=== PATIENT | male | born 1990 | race Caucasian/White ===

== ENCOUNTER 2018-12-18 15:11 | Emergency (ER) ==
--- NOTE | 2018-12-18 15:39 | ED.PDOC ---
History of Present Illness - General Chief Complaint: Respiratory Problem Stated Complaint: Pt complains of chest congestion Time Seen by Provider: 12/18/18 15:33 Source: patient Exam Limitations: no limitations - History of Present Illness Timing/Duration: 7-24 hours Severity: mild Activities at Onset: activity Possible Cause: allergen exposure Improving Factors: nothing Worsening Factors: nothing Associated Symptoms: cough, wheezing Respiratory Risk Factors: exposure to allergen, pollen Allergies/Adverse Reactions: Allergies NO KNOWN ALLERGY Allergy (Verified 12/18/18 15:26) Home Medications: Ambulatory Orders Albuterol Inhaler [Ventolin Hfa Inhaler] 2 puff INH Q12HRS PRN #1 inh 12/18/18 Review of Systems - Review of Systems Constitutional: Denies: chills, fever EENTM: States: nose congestion. Denies: throat pain Respiratory: States: cough, short of breath, wheezing Cardiology: Denies: chest pain, palpitations Gastrointestinal/Abdominal: States: no symptoms reported Genitourinary: States: no symptoms reported Musculoskeletal: States: no symptoms reported Skin: States: no symptoms reported Neurological: States: no symptoms reported Endocrine: States: no symptoms reported Hematologic/Lymphatic: States: no symptoms reported Past Medical History (General) - Patient Medical History Hx Stroke: No Hx of COPD: No Hx Congestive Heart Failure: No Hx Hypertension: No Hx Diabetes: No Surgical History: no surgical history - Vaccination History Hx Tetanus, Diphtheria Vaccination: Yes Hx Influenza Vaccination: No Hx Pneumococcal Vaccination: No Immunizations Up to Date: No - Social History Hx Tobacco Use: Yes Hx Alcohol Use: Yes - Occasional Hx Substance Use: Yes Hx Substance Use Treatment: No Hx Depression: No - Female History Patient is a Female of Child Bearing Age (10 -59 yrs old): No Patient : No Family Medical History - Family History Mother Family History: Unknown Living Status: Unknown Physical Exam - Physical Exam General Appearance: Alert, Comfortable Eyes, Ears, Nose, Throat Exam: PERRL/EOMI, pharynx normal Neck: normal inspection Respiratory: no respiratory distress, wheezing Cardiovascular/Chest: normal peripheral pulses, regular rate, rhythm Skin Exam: normal color, warm/dry Lymphatic: no adenopathy Departure - Departure Clinical Impression: Bronchitis Disposition: Discharge to Home or Self Care Departure Forms: ED Discharge - Pt. Copy, Patient Portal Self Enrollment Prescriptions: Albuterol Inhaler [Ventolin Hfa Inhaler] 2 puff INH Q12HRS PRN #1 inh PRN Reason: Shortness Of Breath/Wheezing Home Medications: Ambulatory Orders Albuterol Inhaler [Ventolin Hfa Inhaler] 2 puff INH Q12HRS PRN #1 inh 12/18/18
[2018-12-18 15:50] VITALS: BP 117/77; TEMP 98.4; O2SAT 97
== END 2018-12-18 15:49 | disposition home or self-care (01) ==
LOC: ER 15:11
DX: J40 Bronchitis, not specified as acute or chronic (principal); Z87.891 Personal history of nicotine dependence

== ENCOUNTER 2019-01-23 08:43 | Emergency (ER) | payer BC ==
[2019-01-23 08:58] VITALS: BP 127/77; TEMP 97.4; O2SAT 99
[2019-01-23] MEDS ORDERED: KETOROLAC TROMETHAMINE INJ 30 MG/ML VIAL IM ONE (09:01)
--- NOTE | 2019-01-23 09:04 | ED.PDOC ---
History of Present Illness - General Chief Complaint: Neck Injury/Pain Stated Complaint: neck pain Time Seen by Provider: 01/23/19 09:00 Source: patient Exam Limitations: no limitations - History of Present Illness Initial Comments: the patient is a 28-year-old male presenting to the emergency room secondary to diffuse posterior neck pain after having gone to a [facility] last night and head banding for a few hours. No focal tenderness. He does have diffuse muscle spasm. No bruising. No evidence of overt trauma. This appears to be myofascial strain. no neurological changes. No other injuries. Timing/Duration: 4-6 hours Severity: moderate Improving Factors: immobilization Worsening Factors: movement Associated Symptoms: denies symptoms Allergies/Adverse Reactions: Allergies NO KNOWN ALLERGY Allergy (Verified 12/18/18 15:26) Home Medications: Ambulatory Orders Albuterol Inhaler [Ventolin Hfa Inhaler] 2 puff INH Q12HRS PRN #1 inh 12/18/18 Cyclobenzaprine HCl [Flexeril] 5 mg PO TID PRN #30 tab 01/23/19 predniSONE [Prednisone] 20 mg PO DAILY #3 tab 01/23/19 Review of Systems - Review of Systems Constitutional: States: no symptoms reported EENTM: States: no symptoms reported Respiratory: States: no symptoms reported Cardiology: States: no symptoms reported Gastrointestinal/Abdominal: States: no symptoms reported Genitourinary: States: no symptoms reported Musculoskeletal: States: see HPI Skin: States: no symptoms reported Neurological: States: no symptoms reported Endocrine: States: no symptoms reported All other Systems: No Change from Baseline Past Medical History (General) - Patient Medical History Hx Stroke: No Hx of COPD: No Hx Congestive Heart Failure: No Hx Hypertension: No Hx Diabetes: No Surgical History: no surgical history - Vaccination History Hx Tetanus, Diphtheria Vaccination: Yes Hx Influenza Vaccination: No Hx Pneumococcal Vaccination: No - Social History Hx Tobacco Use: Yes Hx Alcohol Use: Yes - Occasional Hx Substance Use: Yes Hx Substance Use Treatment: No Hx Depression: No - Female History Patient : No Family Medical History - Family History Mother Family History: Unknown Living Status: Unknown Physical Exam - Physical Exam General Appearance: Alert, Comfortable, No apparent distress Eye Exam: bilateral normal Ears, Nose, Throat: normal ENT inspection, normal pharynx Neck: other - see history of present illness Respiratory: no respiratory distress, no accessory muscle use Cardiovascular/Chest: normal peripheral pulses, no edema Peripheral Pulses: radial,right: 2+, radial,left: 2+, dorsalis pedis,right: 2+, dorsalis pedis,left: 2+ Rectal Exam: deferred Back Exam: no CVA tenderness, no vertebral tenderness Extremity: non-tender, normal inspection, no pedal edema, normal capillary refill 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 He can use topical heat or icy hot or Biofreeze. He does need to do neck stretching exercises. [id number] anti-inflammatories such as Motrin or Aleve can be used. He'll be written for 3 days of oral prednisone and some muscle relaxers for as needed use. He needs to keep himself well hydrated. Keep routine follow up with primary care doctor. ER warnings were given. Departure - Departure Clinical Impression: Myofascial pain syndrome, cervical Disposition: Discharge to Home or Self Care Condition: Fair Departure Forms: ED Discharge - Pt. Copy, Patient Portal Self Enrollment Instructions: DI for Cervical Muscle Strain Diet: regular diet Activity: increase activity as tolerated Referrals: KATH PATEL [Primary Care Provider] - 1-2 Weeks Prescriptions: Cyclobenzaprine HCl [Flexeril] 5 mg PO TID PRN #30 tab PRN Reason: Muscle Spasms predniSONE [Prednisone] 20 mg PO DAILY #3 tab Home Medications: Ambulatory Orders Albuterol Inhaler [Ventolin Hfa Inhaler] 2 puff INH Q12HRS PRN #1 inh 12/18/18 Cyclobenzaprine HCl [Flexeril] 5 mg PO TID PRN #30 tab 01/23/19 predniSONE [Prednisone] 20 mg PO DAILY #3 tab 01/23/19 Additional Instructions: the patient's 28-year-old male presenting to the emergency room secondary to what appears to be myofascial strain of the paracervical spinal muscles. He can use topical heat or icy hot or Biofreeze. He does need to do neck stretching exercises. Hsvu-[id number]-[id number] anti-inflammatories such as Motrin or Aleve can be used. He'll be written for 3 days of oral prednisone and some muscle relaxers for as needed use. He needs to keep himself well hydrated. Keep routine follow up with primary care doctor. ER warnings were given.
== END 2019-01-23 09:24 | disposition home or self-care (01) ==
LOC: ER 08:43
DX: M54.2 Cervicalgia (principal); Z87.891 Personal history of nicotine dependence

== ENCOUNTER 2019-09-25 10:05 | Emergency (ER) | payer SELFPAY ==
--- NOTE | 2019-09-25 11:59 | RAD ---
Study: Frontal and Lateral Radiographs of the Chest. Indication: cough Comparison: None. Impression: Heart size normal. Lungs clear. No acute osseous abnormality. Costophrenic angles not included in their entirety within the field of view. Electronically signed by: Nathaniel Lloyd MD 09/25/2019 11:58 AM [facility]
--- NOTE | 2019-09-25 15:25 | ED.PDOC ---
History of Present Illness - General Chief Complaint: Respiratory Problem Stated Complaint: trouble breathing Time Seen by Provider: 09/25/19 12:47 Source: patient - History of Present Illness Comments: 29-year-old male presents to the emergency department complaining of cough, congestion and chest tightness that has been intermittent for the last 3 days. He reports 3 days ago he started with upper respiratory symptoms and fever however since that time his fever has resolved and he is continuing to cough and feels like his chest is tight. He does have a history of asthma but is currently out of his albuterol. He denies any nausea, vomiting or diarrhea. Symptoms are currently moderate in severity and nothing he does seems to make them significantly better but they are worsened with cough and taking a deep breath. Allergies/Adverse Reactions: Allergies NO KNOWN ALLERGY Allergy (Verified 12/18/18 15:26) Home Medications: Ambulatory Orders Albuterol Inhaler [Ventolin Hfa Inhaler] 2 puff INH Q12HRS PRN #1 inh 12/18/18 Albuterol Inhaler [Ventolin Hfa Inhaler] 1 - 2 puff INH Q4H PRN #1 inh 09/25/19 Prednisone 50 mg PO DAILY #5 tab 09/25/19 Review of Systems - Review of Systems Constitutional: States: fever. Denies: chills, weakness EENTM: States: nose congestion, throat pain Respiratory: States: cough. Denies: wheezing Cardiology: Denies: edema, palpitations Gastrointestinal/Abdominal: Denies: nausea, vomiting Past Medical History (General) - Patient Medical History Hx Stroke: No Hx Asthma: Yes Hx of COPD: No Hx Congestive Heart Failure: No Hx Hypertension: No Hx Diabetes: No Surgical History: no surgical history - Vaccination History Hx Tetanus, Diphtheria Vaccination: Yes Hx Influenza Vaccination: No Hx Pneumococcal Vaccination: No - Social History Hx Tobacco Use: Yes Hx Alcohol Use: Yes Hx Substance Use: Yes Hx Substance Use Treatment: No Hx Depression: No - Activities of Daily Living Hospice Agency (if applicable):: None - Female History Patient is a Female of Child Bearing Age (10 -59 yrs old): No Patient : No - Triage Comment ED Triage Comment: pt voiced he is an asthmatic and was having trouble breathing but resolved upon arrival to hospital. Family Medical History - Family History Mother Family History: Unknown Living Status: Unknown Physical Exam - Physical Exam General Appearance: Alert, No apparent distress, Well Developed, Well Nourished ENT Exam: nasal congestion, pharyngeal erythema - with post nasal drip Neck: full range of motion, supple, normal inspection Respiratory: lungs clear, normal breath sounds, no respiratory distress, no accessory muscle use Cardiovascular/Chest: normal peripheral pulses, regular rate, rhythm, no edema Gastrointestinal/Abdominal: non tender, soft Neurologic: alert, other - no focal deficits Comments: Vital Signs - 24 hr 09/25/19 09/25/19 09/25/19 11:38 14:00 15:00 Temperature 97.6 F 97.6 F 99.1 F Pulse Rate [ 80 86 98 H left brachial] Respiratory 20 20 18 Rate Blood Pressure 119/79 138/89 131/90 [left brachial] O2 Sat by Pulse 99 97 98 Oximetry Progress - Progress Progress: 09/25/19 15:29 The patient was seen and evaluated in the emergency department. Chest x-ray was obtained and reviewed. His lungs are clear and he is in no acute respiratory distress. At this time and think the patient is stable to be discharged home with prescription for albuterol and prednisone. He was encouraged to stop smoking and to follow-up with the [facility]. He is also encouraged to return to the emergency department for any significant worsening of symptoms or other concerns. The patient and significant other at the bedside voiced understanding and agreeable to treatment plan. - Results/Orders Results/Orders: CXR: Impression: Heart size normal. Lungs clear. No acute osseous abnormality. Costophrenic angles not included in their entirety within the field of view. Electronically signed by: Nathaniel Lloyd MD 09/25/2019 11:58 AM [employer] Departure - Departure Clinical Impression: Bronchitis Time of Disposition: 15:24 Disposition: Discharge to Home or Self Care Condition: Good Departure Forms: ED Discharge - Pt. Copy, Patient Portal Self Enrollment Instructions: Acute Bronchitis Referrals: [facility] [Provider Group] - 1-5 Days Prescriptions: Albuterol Inhaler [Ventolin Hfa Inhaler] 1 - 2 puff INH Q4H PRN #1 inh PRN Reason: sob Prednisone 50 mg PO DAILY #5 tab Home Medications: Ambulatory Orders Albuterol Inhaler [Ventolin Hfa Inhaler] 2 puff INH Q12HRS PRN #1 inh 12/18/18 Albuterol Inhaler [Ventolin Hfa Inhaler] 1 - 2 puff INH Q4H PRN #1 inh 09/25/19 Prednisone 50 mg PO DAILY #5 tab 09/25/19 Additional Instructions: Take medications as directed. Return to emergency department for any signi ficant worsening symptoms or other concerns. [facility]
[2019-09-25 15:37] VITALS: BP 130/92; TEMP 97.8; O2SAT 96
== END 2019-09-25 15:37 | disposition home or self-care (01) ==
LOC: ER 10:05
DX: J40 Bronchitis, not specified as acute or chronic (principal); Z87.891 Personal history of nicotine dependence; Z79.899 Other long term (current) drug therapy